=== PATIENT | female | born 1995 | race African-American/Black ===

== ENCOUNTER 2020-09-23 14:24 | Emergency (ER) | payer SELFPAY ==
[~2020-09-23] VITALS: Ht 172.7 cm; Wt 69.0 kg
[2020-09-23 14:32] VITALS: BP 105/60
== END 2020-09-23 15:22 ==
LOC: ER 14:52
DX: Z02.89 Encounter for other administrative examinations (principal); F20.9 Schizophrenia, unspecified; F31.9 Bipolar disorder, unspecified
CPT/HCPCS: 99283